=== PATIENT | male | born 1975 | race Two or more races ===

== ENCOUNTER 2022-07-04 07:22 | Emergency (ER) | payer MEDICAID, OTHER ==
[~2022-07-04] VITALS: Ht 170.2 cm; Wt 80.0 kg
[2022-07-04 07:44] LABS: Basophils # (auto) 0 10 ^3/uL (0-0.2); Basophils % (auto) 0.7 % (0.0-2.0); Eosinophils # (auto) 0.2 10 ^3/uL (0-0.8); Eosinophils % (auto) 3.7 % (0.0-7.0); Hemoglobin 15.8 g/dL (13.5-17.5); Lymphocytes # (auto) 1.6 10 ^3/uL (0.4-5.4); Lymphocytes % (auto) 32.8 % (10.0-50.0); Mean Corpuscular Hemoglobin 30.7 pg (28.0-32.0); Mean Corpuscular Hgb Conc. 33.6 g/dL (32.0-36.0); Mean Corpuscular Volume 91.1 fL (80.0-100.0); Monocytes # (auto) 0.5 10 ^3/uL (0-1.3); Monocytes % (auto) 9.4 % (0.0-12.0); Neutrophils # (auto) 2.6 10 ^3/uL (1.6-8.6); Neutrophils % (auto) 53.4 % (37.0-80.0); Nucleated Red Blood Cells % 0.1 %; Red Blood Cells 5.16 10^6/uL (4.5-5.90); Red Cell Distribution Width 12.9 % (11.8-14.3); White Blood Cell 4.9 10^3/uL (4.4-10.8)
[2022-07-04 08:07] LABS: Albumin 3.8 g/dL (3.4-5.0); Calcium 8.6 mg/dL (8.5-10.1); Potassium 4.3 mmol/L (3.5-5.1)
[2022-07-04 08:09] LABS: INR 0.96 (0.9-1.15); Partial Thromboplastin Time 29.1 sec (24.6-33.4)
[2022-07-04 08:16] LABS: BUN/Creatinine Ratio 16.4
[2022-07-04 08:17] LABS: Bilirubin, Total 0.3 mg/dL (0.2-1.0); Total Protein 7.7 g/dL (6.4-8.2)
[2022-07-04] MEDS ORDERED: ALUM & MAG HYDROX-SIMETH LIQ(MAALOX) 30 ML PO ONE (09:15)
[2022-07-04] MEDS ORDERED: FAMOTIDINE 20 MG TAB PO ONE (09:15)
[2022-07-04] MEDS ORDERED: LIDOCAINE VISCOUS 2% 15ML UD PO ONE (09:15)
[2022-07-04 13:58] VITALS: BP 140/74
== END 2022-07-04 14:02 | disposition home or self-care (01) ==
LOC: ER 07:22
DX: R10.13 Epigastric pain (principal); E78.5 Hyperlipidemia, unspecified; Z90.49 Acquired absence of other specified parts of digestive tract
CPT/HCPCS: 36415; 71046; 80053; 84484; 85025; 85610; 85730; 93005